=== PATIENT | male | born 1935 | race Hispanic/Latino ===

== ENCOUNTER → 2019-01-25 | Outpatient (CLI) | payer MEDICARE ==
[~2019-01-25] MED LIST: AMLO5TAB9 PO; ASPI-1181 PO; CARV6.25 PO; FEBU40TA PO; FURO40TA5 PO; GLIP5TAB11 PO; LINA5TAB PO; LOSA100T58 PO; ROSU10TA22 PO
== END | disposition home or self-care (01) ==
LOC: SHCH 11:29
PROVIDERS: ATTEND Internal Medicine Cardiovascular Disease
DX: I11.9 Hypertensive heart disease without heart failure (principal); I05.8 Other rheumatic mitral valve diseases
CPT/HCPCS: 93306

== ENCOUNTER → 2019-01-30 | Outpatient (CLI) | payer MEDICARE | END | disposition home or self-care (01) | LOC: SHCH 14:14 | PROVIDERS: ATTEND Internal Medicine Cardiovascular Disease | DX: I87.2 Venous insufficiency (chronic) (peripheral) (principal); I73.9 Peripheral vascular disease, unspecified | CPT/HCPCS: 93925; 93970 ==

== ENCOUNTER → 2019-02-26 | Outpatient (CLI) | payer MEDICARE ==
[~2019-02-26] VITALS: Ht 165.1 cm; Wt 98.0 kg
[~2019-02-26] MED LIST changes: +REGADENOSON 0.4 MG/5 ML PF SYG IVP SCH
== END | disposition home or self-care (01) ==
LOC: SHCH 07:52
PROVIDERS: ATTEND Internal Medicine Cardiovascular Disease
DX: I25.5 Ischemic cardiomyopathy (principal)
CPT/HCPCS: 78452; 93017; 96374; A9500 ×2; J2785

== ENCOUNTER → 2020-12-18 | Outpatient (CLI) | payer MEDICARE ==
[~2020-12-18] MED LIST changes: +AMLO-257 PO; -AMLO5TAB9 PO; -ASPI-1181 PO; +ASPI-1443 PO; -REGADENOSON 0.4 MG/5 ML PF SYG IVP SCH
== END | disposition home or self-care (01) ==
LOC: SHCH 11:06
PROVIDERS: ATTEND Internal Medicine Cardiovascular Disease
DX: I35.8 Other nonrheumatic aortic valve disorders (principal); R60.9 Edema, unspecified; I42.0 Dilated cardiomyopathy
CPT/HCPCS: 93306

== ENCOUNTER → 2021-02-06 | Outpatient (CLI) | payer MEDICARE | END | disposition home or self-care (01) | LOC: SHCH 10:52 | PROVIDERS: ATTEND Internal Medicine Cardiovascular Disease | DX: I87.2 Venous insufficiency (chronic) (peripheral) (principal) | CPT/HCPCS: 93970 ==

== ENCOUNTER 2022-03-18 16:16 | Emergency (ER) | payer MEDICARE ==
[2022-03-18] MEDS ORDERED: DOCU-116 PO (16:49)
[2022-03-18 19:44] VITALS: BP 111/67
== END 2022-03-18 20:20 | disposition home or self-care (01) ==
LOC: EDH 16:16
DX: K59.00 Constipation, unspecified (principal); E03.9 Hypothyroidism, unspecified; E11.9 Type 2 diabetes mellitus without complications; I11.0 Hypertensive heart disease with heart failure; I50.9 Heart failure, unspecified; J44.9 Chronic obstructive pulmonary disease, unspecified; Z79.82 Long term (current) use of aspirin; Z90.49 Acquired absence of other specified parts of digestive tract